=== PATIENT | female | born 1965 | race Caucasian/White ===

== ENCOUNTER → 2016-07-21 | Outpatient (CLI) | payer BC ==
--- NOTE | 2016-07-21 08:46 | DIAGNOSTIC IMAGING REPORT ---
RIGHT ANKLE MRI HISTORY: Right ankle pain. RIGHT POSTERIOR TIBIAL TENDONITIS Right TECHNIQUE: Multiplanar multisequence MRI of the right ankle were performed without the use of intravenous contrast. COMPARISON STUDY: None. FINDINGS: Normal marrow signal intensity seen throughout the visualized osseous structures. No fracture or dislocation within the right ankle. Mild lateral subcutaneous edema. The medial and lateral stabilizing ligaments are intact. Normal caliber Achilles tendon. Small focus of increased signal within the distal peroneus longus tendon consistent with minimal tendinopathy. The flexor and extensor tendons are normal in course, caliber, and signal intensity. Trace edema at the proximal attachment of the plantar fascia consistent with minimal plantar fasciitis. IMPRESSION: 1. Minimal peroneus longus tendinopathy. 2. Minimal plantar fasciitis. Electronically signed by: Rashaad Montero M.D. 07/21/2016 8:44 AM Dictated Date/Time: 07/21/2016 8:27 AM
== END | disposition home or self-care (01) ==
LOC: C.MRI 07:24
PROVIDERS: ATTEND Podiatrist Foot & Ankle Surgery
DX: M79.671 Pain in right foot (principal)

== ENCOUNTER 2017-06-17 13:08 | Emergency (ER) | payer BC ==
[~2017-06-17] VITALS: Ht 154.9 cm; Wt 74.2 kg
[2017-06-17 13:17] VITALS: TEMP 36.8; Ht 154.9 cm; Wt 74.2 kg
[2017-06-17] MEDS ORDERED: PANT40TA PO (13:48)
[2017-06-17] MEDS ORDERED: PRM/45 PO (13:48)
[2017-06-17] MEDS ORDERED: CYM/30 PO (13:48)
[2017-06-17] MEDS ORDERED: LEVO112T4 PO (13:48)
[2017-06-17] MEDS ORDERED: SODIUM CHLORIDE 0.9% 1000ML 1,000 ML IV STA (14:09)
[2017-06-17] MEDS ORDERED: ONDANSETRON INJ 2 MG/ML 2 ML VIAL IV STA (14:09)
[2017-06-17] MEDS ORDERED: OPTIRAY 320 IV PRN (14:15)
[2017-06-17 14:54] LABS: BASO % 0.2 %; BASO ABS # 0.02 K/uL (0-0.2); EOS % 3.5 %; EOS ABS # 0.45 K/uL (0-0.5); HEMATOCRIT 37.8 % (37-47); HEMOGLOBIN 12.8 g/dL (12.0-16.0); IG# 0.04 K/uL (0.00-0.02); LYMPH ABS # 3.36 K/uL (1.2-3.4); MEAN CELL VOLUME 86.9 fL (80-100); MEAN CORPUSCULAR HEMOGLOBIN 29.4 pg (25-34); MEAN CORPUSCULAR HGB CONC 33.9 g/dl (32-36); MEAN PLATELET VOLUME 8.8 fL (7.4-10.4); MONO % 6.3 %; MONO ABS # 0.82 K/uL (0.11-0.59); NEUT % 63.7 %; NEUT ABS # 8.24 K/uL (1.4-6.5); PLATELET COUNT 280 K/uL (130-400); RED CELL DISTRIBUTION WIDTH CV 14.5 % (11.5-14.5); RED CELL DISTRIBUTION WIDTH SD 46.2 fL (36.4-46.3); WHITE BLOOD COUNT 12.93 K/uL (4.8-10.8)
[2017-06-17 15:14] LABS: ALBUMIN 2.9 gm/dl (3.4-5.0); ALT/SGPT 27 U/L (12-78); BLOOD UREA NITROGEN 6 mg/dl (7-18); CALCIUM 9.4 mg/dl (8.5-10.1); CARBON DIOXIDE 24 mmol/L (21-32); CREATININE 0.66 mg/dl (0.60-1.20); GLUCOSE 95 mg/dl (70-99); LIPASE 91 U/L (73-393); POTASSIUM 3.8 mmol/L (3.5-5.1); SODIUM 139 mmol/L (136-145)
[2017-06-17 15:17] LABS: ALKALINE PHOSPHATASE 96 U/L (45-117); AST/SGOT 13 U/L (15-37)
--- NOTE | 2017-06-17 16:08 | EMERGENCY ROOM VISIT NOTE ---
ED Visit Note First contact with patient: 13:59 CHIEF COMPLAINT: Diarrhea, vomiting HISTORY OF PRESENTING ILLNESS: This is a 52-year-old female who presents to the emergency department with complaint of diarrhea and vomiting. Patient states she was treated with an ear infection at the end of May, her doctor placed her on Augmentin, and she developed diarrhea and bloody stools approximately 6 days after taking the antibiotics. She stopped taking the Augmentin at her doctor's suggestion, but states she has continued to have loose and sometimes watery stools for the past 2 weeks. She states over the past few days her diarrhea has gotten worse, she states she is having a bowel movement once an hour and has noticed some blood in the stool again. She states she has also had severe nausea with vomiting for the past 2 days and has been unable to keep anything down. She feels very weak and tired, and is concerned she may be dehydrated as well. She has had some associated abdominal cramping and chills, but denies fevers. She denies headaches, neck pain, dizziness or syncope, chest pain, shortness of breath, dysuria or urinary frequency, or rash. She denies any history of bowel disease. She reports a history of a total hysterectomy, no other abdominal surgeries. REVIEW OF SYSTEMS: A complete 10 point review of systems was reviewed with the patient with pertinent positives and negatives as per history of present illness. All else were negative. PAST MEDICAL HISTORY: Hypothyroidism, GERD, fibromyalgia. SOCIAL HISTORY: Lives at home. Denies tobacco use. ALLERGIES: No known allergies. PHYSICAL EXAM: CONSTITUTIONAL: Pleasant and cooperative. No acute distress. Mildly dehydrated , but otherwise well appearing and well nourished. HEENT: Normocephalic, atraumatic. Pupils equal, round and reactive to light, EOMI. TMs normal. Pharynx normal. Tacky mucous membranes. NECK: Supple, full active range of motion without discomfort. RESPIRATORY: Clear to auscultation bilaterally with no wheezing, crackles, rhonchi or stridor. Equal expansion bilaterally. CARDIOVASCULAR: Regular rate and rhythm with no murmurs, rubs or gallops. Normal peripheral perfusion. No edema. GASTROINTESTINAL: Soft, moderate diffuse tenderness of the lower abdomen to palpation, nondistended. No rebound tenderness or guarding. No palpable masses or HSM. Hyperactive bowel sounds present in all quadrants. No CVA tenderness bilaterally. MUSCULOSKELETAL: Full range of motion of all joints without discomfort. INTEGUMENTARY: No rash or other significant dermatologic conditions noted. NEUROLOGIC: Alert and oriented X 4 with normal affect. Normal strength and sensation in all 4 extremities. No focal neurologic deficits noted. Normal speech. Normal gait observed. ED COURSE AND MEDICAL DECISION MAKING: CC: Patient presenting with complaint of nausea/vomiting and diarrhea DIFFERENTIAL DIAGNOSIS: Includes, but not limited to gastroenteritis, gastritis , infectious colitis, C. difficile infection, inflammatory bowel disease, diverticulitis, intra-abdominal abscess, appendicitis, mesenteric adenitis, UTI , among others. INTERPRETATION OF LABS: Mild leukocytosis with left shift, no anemia, no significant electrolyte abnormalities, normal renal function, normal liver enzymes and lipase. IMAGING: ABD/PELVIS IV CONTRAST ONLY CT DOSE: 731.04 mGycm HISTORY: Pain. diffuse lower abd pain, n/v/d, blood in stool TECHNIQUE: Multiaxial CT images of the abdomen and pelvis were performed following the use of intravenous contrast. A dose lowering technique was utilized adhering to the principles of ALARA. COMPARISON STUDY: 06/29/2005 FINDINGS: Minimal dependent basilar atelectasis. Stable upper left hepatic lobe cyst. Prior cholecystectomy. Pancreas is uniform throughout. The adrenal glands are normal. Kidneys enhance uniformly. No evidence for hydronephrosis. Findings of circumferential bowel wall thickening of the transverse and descending as well as sigmoid colonic regions. This appearance consistent with that of a nonspecific colitis. Mild pericolonic infiltrative change. No evidence for abscess or collection. No significant small bowel distention. Bladder is relatively collapsed. Cecum is pelvic in location. IMPRESSION: 1. Findings consistent with a nonspecific colitis involving the transverse and descending and sigmoid colonic regions. 2. No evidence for abscess collection or obstructive change. 3. Small stable left hepatic lobe cyst. MEDICATION RECONCILIATION: I attest that I have personally reviewed the patient 's current medication list. INITIAL VITAL SIGNS REVIEW: I reviewed the patient's initial vital signs and interpret them as follows: T: Afebrile; BP: Hypertensive; HR: Tachycardic; RR : Within normal limits; Pulse Ox: within normal limits on room air. Blood pressure screening: The patient was found to have an elevated blood pressure, and was referred to their primary doctor for recheck and further treatment. SUMMARY: Patient was evaluated at bedside, history and physical exam performed. Patient is alert and oriented, in no acute distress, resting, and stretcher. Patient does appear mildly dehydrated and is noted to be slightly tachycardic. Patient has diffuse lower abdominal tenderness to palpation, no rebound tenderness or guarding, hyperactive bowel sounds. Orders were placed at bedside for labs, UA, stool cultures and C. difficile assay, IV fluids for hydration, IV Zofran for nausea, CT abdomen/pelvis with IV contrast to evaluate for intra-abdominal infection. Patient discussed with Dr. Kaplan, who agrees with my assessment and plan. Labs and imaging reviewed as above, CT findings consistent with a nonspecific colitis, which I do suspect may be infectious or antibiotic-induced. Patient was unable to provide a stool sample after multiple attempts. I discussed with the patient regarding stool collection at home, she verbalized understanding and was provided with a stool collection kit. Patient reassessed multiple times throughout ED stay, she reports her symptoms are improving. Her vitals remained stable and she continues to be afebrile. Since we were unable to obtain stool studies today, and the patient is nontoxic- appearing, will hold off on prescribing any antibiotics for now. Patient was updated on all results and plan for discharge, she was encouraged to follow closely with her primary care provider. Given the persistence of symptoms for several weeks, I did also encourage the patient to seek evaluation with a [employer] utility worker if her symptoms do not improve. Patient was also given strict return precautions should her symptoms worsen, she verbalized understanding. Patient was discharged home in stable condition and ambulatory. Current/Historical Medications Scheduled Duloxetine HCl (Cymbalta), Unknown Dose PO DAILY Estrogens, Conjugated (Premarin), Unknown Dose PO DAILY Levothyroxine Sodium (Levothyroxine Sodium), Unknown Dose PO DAILY Ondasetron Odt (Zofran Odt), 4 MG SL Q6H Pantoprazole (Protonix), 40 MG PO DAILY Allergies Coded Allergies: No Known Allergies (Unverified , 04/20/13) Vital Signs Date Time Temp Pulse Resp B/P (MAP) Pulse Ox O2 Delivery O2 Flow Rate FiO2 06/17/17 18:19 83 16 154/90 98 06/17/17 17:34 82 18 155/91 96 Room Air 06/17/17 16:28 85 20 153/91 99 Room Air 06/17/17 14:42 82 18 158/100 96 Room Air 06/17/17 14:37 87 06/17/17 13:17 36.8 101 18 167/108 97 Room Air Laboratory Results 06/17/17 14:34 Red Blood Count 4.35, Mean Corpuscular Volume 86.9, Mean Corpuscular Hemoglobin 29.4, Mean Corpuscular Hemoglobin Concent 33.9, Mean Platelet Volume 8.8, Neutrophils (%) (Auto) 63.7, Lymphocytes (%) (Auto) 26.0, Monocytes (%) (Auto) 6.3, Eosinophils (%) (Auto) 3.5, Basophils (%) (Auto) 0.2, Neutrophils # (Auto) 8.24, Lymphocytes # (Auto) 3.36, Monocytes # (Auto) 0.82, Eosinophils # (Auto) 0.45, Basophils # (Auto) 0.02 06/17/17 14:34 Test 06/17/17 14:34 06/17/17 15:45 White Blood Count 12.93 K/uL (4.8-10.8) Red Blood Count 4.35 M/uL (4.2-5.4) Hemoglobin 12.8 g/dL (12.0-16.0) Hematocrit 37.8 % (37-47) Mean Corpuscular Volume 86.9 fL (80-100) Mean Corpuscular Hemoglobin 29.4 pg (25-34) Mean Corpuscular Hemoglobin Concent 33.9 g/dl (32-36) Platelet Count 280 K/uL (130-400) Mean Platelet Volume 8.8 fL (7.4-10.4) Neutrophils (%) (Auto) 63.7 % Lymphocytes (%) (Auto) 26.0 % Monocytes (%) (Auto) 6.3 % Eosinophils (%) (Auto) 3.5 % Basophils (%) (Auto) 0.2 % Neutrophils # (Auto) 8.24 K/uL (1.4-6.5) Lymphocytes # (Auto) 3.36 K/uL (1.2-3.4) Monocytes # (Auto) 0.82 K/uL (0.11-0.59) Eosinophils # (Auto) 0.45 K/uL (0-0.5) Basophils # (Auto) 0.02 K/uL (0-0.2) RDW Standard Deviation 46.2 fL (36.4-46.3) RDW Coefficient of Variation 14.5 % (11.5-14.5) Immature Granulocyte % (Auto) 0.3 % Immature Granulocyte # (Auto) 0.04 K/uL (0.00-0.02) Anion Gap 10.0 mmol/L (3-11) Est Creatinine Clear Calc Drug Dose 92.9 ml/min Estimated GFR () 118.5 Estimated GFR (Non- 102.3 BUN/Creatinine Ratio 9.3 (10-20) Calcium Level 9.4 mg/dl (8.5-10.1) Total Bilirubin 0.2 mg/dl (0.2-1) Direct Bilirubin < 0.1 mg/dl (0-0.2) Aspartate Amino Transf (AST/SGOT) 13 U/L (15-37) Alanine Aminotransferase (ALT/SGPT) 27 U/L (12-78) Alkaline Phosphatase 96 U/L (45-117) Total Protein 7.0 gm/dl (6.4-8.2) Albumin 2.9 gm/dl (3.4-5.0) Lipase 91 U/L (73-393) Urine Color DK YELLOW Urine Appearance CLEAR (CLEAR) Urine pH 5.0 (4.5-7.5) Urine Specific [place] 1.025 (1.000-1.030) Urine Protein NEG (NEG) Urine Glucose (UA) NEG (NEG) Urine Ketones TRACE (NEG) Urine Occult Blood NEG (NEG) Urine Nitrite NEG (NEG) Urine Bilirubin NEG (NEG) Urine Urobilinogen NEG (NEG) Urine Leukocyte Esterase TRACE (NEG) Urine WBC (Auto) 1-5 /hpf (0-5) Urine RBC (Auto) 0-4 /hpf (0-4) Urine Hyaline Casts (Auto) 5-10 /lpf (0-5) Urine Epithelial Cells (Auto) >30 /lpf (0-5) Urine Bacteria (Auto) NEG (NEG) Medications Administered Medications (Trade) Dose Ordered Sig/Jeanette Route Start Time Stop Time Status Last Admin Dose Admin Ondansetron HCl (Zofran Inj) 4 mg NOW STAT IV 06/17/17 14:09 06/17/17 14:12 DC 06/17/17 14:41 4 MG Sodium Chloride 1,000 ml @ 999 mls/hr Q1H1M STAT IV 06/17/17 14:09 06/17/17 15:09 DC 06/17/17 14:41 999 MLS/HR Departure Information Impression Primary Impression: Colitis, acute Dispostion Home / Self-Care Condition GOOD Prescriptions Ondasetron Odt (ZOFRAN ODT) 4 Mg Tab 4 MG SL Q6H for Nausea, #6 TAB Prov: AddisonFaizanStephanie Esme, HUGO 06/17/17 Referrals Mary Ba D.O. (PCP) Geronimo Real, DO Patient Instructions ED Food Poison Or Gastroenteritis, My [facility] Additional Instructions You have been treated in the Emergency Department your diarrhea and abdominal pain. Laboratory results and imaging studies have ruled out any emergent causes for your symptoms which would warrant admission or surgery. CT scan of your abdomen and pelvis shows a nonspecific colitis, which is inflammation of the colon. It is unclear whether this is a bacterial or viral infection. You have been provided with a stool collection kit. If you are able to collect a stool sample, you may bring it back to this hospital lab within the next 24 hours to have stool testing done. You have been prescribed Zofran to be used as needed for nausea/vomiting. Take as prescribed. For pain control, you can use the following [id number] medicines (if >12 yo): - Regular strength (325mg/tab) Tylenol (acetaminophen) 2 tabs every 4-6 hours as needed. Do not exceed 10 tablets in a 24 hour period. Avoid taking more than 3000 mg of Tylenol per day. This includes any other sources of acetaminophen you may take on a regular basis. - Regular strength (200 mg/tab) Advil (ibuprofen) 3 tabs every 6-8 hours as needed. Do not exceed a dose of 2400 mg per day. Drink plenty of fluids to stay well hydrated. Stick with bland foods and avoid anything dairy, spicy, or hard to digest until your symptoms have resolved. As with any trip to the Emergency Department, you should follow-up with your Primary Care Provider from today's visit. You have also been provided with a [employer]ge utility worker that you may follow up with if your diarrhea and abdominal pain symptoms persist. Call for an appointment. Return to the emergency department for severe worsening abdominal or back pain, worsening nausea/vomiting, vomiting blood, blood in your stool or urine, fevers > 101.5, severe dizziness or passing out, or any other concerns. Work Instructions Return To Work: 2 days
--- NOTE | 2017-06-17 16:29 | DIAGNOSTIC IMAGING REPORT ---
ABD/PELVIS IV CONTRAST ONLY CT DOSE: 731.04 mGycm HISTORY: Pain. diffuse lower abd pain, n/v/d, blood in stool TECHNIQUE: Multiaxial CT images of the abdomen and pelvis were performed following the use of intravenous contrast. A dose lowering technique was utilized adhering to the principles of ALARA. COMPARISON STUDY: 06/29/2005 FINDINGS: Minimal dependent basilar atelectasis. Stable upper left hepatic lobe cyst. Prior cholecystectomy. Pancreas is uniform throughout. The adrenal glands are normal. Kidneys enhance uniformly. No evidence for hydronephrosis. Findings of circumferential bowel wall thickening of the transverse and descending as well as sigmoid colonic regions. This appearance consistent with that of a nonspecific colitis. Mild pericolonic infiltrative change. No evidence for abscess or collection. No significant small bowel distention. Bladder is relatively collapsed. Cecum is pelvic in location. IMPRESSION: 1. Findings consistent with a nonspecific colitis involving the transverse and descending and sigmoid colonic regions. 2. No evidence for abscess collection or obstructive change. 3. Small stable left hepatic lobe cyst. The above report was generated using voice recognition software. It may contain grammatical, syntax or spelling errors. Electronically signed by: Jorje Martinez M.D. 06/17/2017 4:28 PM Dictated Date/Time: 06/17/2017 4:23 PM
[2017-06-17] MEDS ORDERED: ONDA4TAB10 SL (18:08)
[2017-06-17 18:19] VITALS: BP 154/90; PULSE 83; O2SAT 98
== END 2017-06-17 18:21 | disposition home or self-care (01) ==
LOC: C.EDB 13:09
DX: K52.9 Noninfective gastroenteritis and colitis, unspecified (principal); Z90.710 Acquired absence of both cervix and uterus; E03.9 Hypothyroidism, unspecified; K21.9 Gastro-esophageal reflux disease without esophagitis; M79.7 Fibromyalgia; E86.0 Dehydration; Z79.899 Other long term (current) drug therapy